=== PATIENT | female | born 1965 | race Caucasian/White ===

== ENCOUNTER 2016-11-01 14:27 | Emergency (ER) | payer OTHER ==
--- NOTE | 2016-11-01 16:34 | ED ORDER SUMMARY ---
..... Patient: CORBIN ORTEGA OrderSheet [facility] VisitID: [id number] [address] [place] [address] 51y, F Registration Date/Time: 11/01/2016 ORDER SHEET Weight: 69.8 kg (stated) Allergies: Erythromycin, Ultram GENERAL ORDERS: MEDICATION ORDERS: Prednisone PO 60 mg (NOW) (15:38 11/01/2016 Roz MONTESINOS) (Ack 15:41 SRoberts R.N.) (15:51 SRoberts R.N.) Benadryl PO 50 mg (NOW) (15:38 11/01/2016 Roz MONTESINOS) (Ack 15:41 SRoberts R.N.) (15:51 SRoberts R.N.) Famotidine PO 40 mg (NOW) (15:38 11/01/2016 Roz MONTESINOS) (Ack 15:41 SRoberts R.N.) (15:52 SRoberts R.N.) IV FLUIDS: ORDER SHEET NOTES: [Electronically signed by Debbie Johnston R.N. (21:33 11/01/2016)] [Electronically signed by Artemio Inman MD (13:25 11/02/2016)] [Electronically locked/signed by Debbie Johnston R.N. (21:33 11/01/2016)]
--- NOTE | 2016-11-01 16:34 | ED NURSING NOTES ---
Clinical Report - Nurses [facility] [address] [place] [address] 11/01/2016 14:30 Patient: CORBIN ORTEGA TRIAGE Triage time 14:34 Nov 01 2016. Chief Complaint: SKIN RASH. Alert. No acute distress. SEPSIS SCREEN: Sepsis Screen. Negative (no infection suspected/documented). --14:45 Debbie Johnston R.N. 14:34 11/01/16. BP: 145/87. HR: 80. RR: 17. O2 saturation: 99%. Temp: 98.4 F. Pain level now: 11/01. --14:45 Debbie Johnston R.N. Weight: 69.8 kg stated. Height/Length: 63 inches Per Patient. BMI: 27.3. --14:44 Debbie Johnston R.N. Medications OxyCONTIN Oral. --14:42 Debbie Johnston R.N. Hydrocodone-Acetaminophen Oral. --14:42 Debbie Johnston R.N. TiZANidine HCl Oral. --14:42 Debbie Johnston R.N. Gabapentin Oral. --14:42 Debbie Johnston R.N. Voltaren Transdermal. --14:43 Debbie Johnston R.N. Furosemide Oral. --14:43 Debbie Johnston R.N. Nasacort Allergy 24HR Nasal. --14:43 Debbie Johnston R.N. NexIUM Oral. --14:43 Debbie Johnston R.N. Paxil Oral. --14:44 Debbie Johnston R.N. Allergies Erythromycin. --14:39 Debbie Johnston R.N. Ultram. --14:39 Debbie Johnston R.N. Medication/allergy information source: the patient (does not know dosages of drugs). --14:45 Debbie Johnston R.N. History Arrived by private vehicle. Historian: patient. Reported as (pt reports rash that began sunday, pt has used "a benadryl cream" 2 days ago and cortisone 10, pt started new med 3 weeks ago estradial, pt denies new soap, laundry detergent, creams or shampoo.). This is a new problem. (sunday). It is described as itchy. It is described as painful (warm water and "sensitive to sunlight" increases pain). 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 PAST MEDICAL HX: Immunizations: up-to-date. The patient has had a hysterectomy. SOCIAL HX: Heavy tobacco smoker- 1 pack per day. No alcohol use or drug use. No infectious disease exposure. ABUSE ASSESSMENT: No report of abuse. SELF HARM ASSESSMENT: A self harm assessment was performed. The patient answered "no" to the question "Have you recently felt down, depressed, or hopeless?", "Have you noticed less interest or pleasure in doing things?", "Do you have thoughts of harming or killing yourself?", "Are you here because you tried to hurt yourself?", "Have you ever tried to hurt yourself before today?", "Have you recently had thoughts about harming or killing others?" and "Do you have any dangerous items in your possession?". FALL RISK ASSESSMENT: Fall risk assessment completed. No fall risk identified. NUTRITIONAL RISK ASSESSMENT: The nutritional risk assessment revealed no deficiencies. FUNCTIONAL ASSESSMENT: Functional assessment: no impairments noted. LEARNING NEEDS ASSESSMENT: The learning needs assessment revealed no barriers. SKIN INTEGRITY ASSESSMENT: Skin integrity risk assessment completed. No skin integrity risk identified. --14:45 Debbie Johnston R.N. PROBLEMS: UTI - Urinary Tract Infection. Hypertension. Drug Poisoning. Bursitis. Arthritis. Endometriosis. Osteopenia. Depression. --14:41 Debbie Johnston R.N. ADDITIONAL SURGERIES: 20 surgeries for endometriosis . Appendectomy. Bladder Suspension. Cholecystectomy. Hysterectomy. Oophorectomy. Right great toe surgery . --14:41 Debbie Johnston R.N. Interventions ID and allergy band on patient. --14:45 Debbie Johnston R.N. PHYSICAL ASSESSMENT Ambulatory to room. Patient gowned. GENERAL / NEURO / PSYCH: Alert. The patient does not appear to be in acute distress. Oriented X 4. HEENT: Pupils equal, round and reactive to light. Mucous membranes are pink. RESPIRATORY: Respirations not labored. Breath sounds within normal limits. ( speaks long full clear sentences, clears oral secretions, L/S clear to posterior auscultation). CVS: Capillary refill less than 2 seconds. Pulses within normal limits. GI / : Abdomen nontender. SKIN: Skin is warm, dry and non-tender. Skin rash present- various areas to lower abd, feet, low back and chest. Normal skin turgor. --14:47 Debbie Johnston R.N. NURSING PROGRESS NOTES Patient gowned. Head of bed elevated. Reassurance given. Patient identifiers checked. Call light placed in reach. Side rails up x 1. Bed placed in lowest position. Brakes of bed on. Patient ready for evaluation- chart flagged. Patient waiting for evaluation. --14:47 Debbie Johnston R.N. 15:51 11/01/2016 Prednisone PO 60 mg given. Allergies verified and confirmed 5 rights. --15:51 Deena Larson R.N. 15:51 11/01/2016 Benadryl (DiphenhydrAMINE HCl) PO 50 mg given. Allergies verified, confirmed 5 rights and sedative warning given to the patient. --15:51 Deena Larson R.N. 15:52 11/01/2016 Famotidine PO 40 mg given. Allergies verified and confirmed 5 rights. --15:52 Deena Larson R.N. Reassessment after medication administered (improvement). She has had no adverse reaction. Overall patient status is improved. ( pt reports a decrease in symptoms since meds.). --16:10 Debbie Johnston R.N. ( pt encouraged to not scratch). --16:10 Debbie Johnston R.N. ( waiting paperwork for dispo). --16:37 Debbie Johnston R.N. DISPOSITION / DISCHARGE Condition at departure: improved. No learning barriers present. Discharge instructions provided and reviewed with the patient. Reviewed medication(s) information. Prescription(s) given to the patient. Note given. Patient verbalized understanding. Written instructions provided in Indonesian. The patient was discharged by the physician. She was discharged home. She left the Emergency Department ambulatory and via private vehicle. Patient driving. --16:52 Debbie Johnston R.N. 16:51 11/01/16. BP: 133/79. HR: 74. RR: 15. O2 saturation: 99%. Temp: 98.6 F. Pain level now: 08/04. --16:52 Debbie Johnston R.N. Departure time: 1644. --16:52 Debbie Johnston R.N. Locked/Released at 11/01/2016 21:33 by Debbie Johnston R.N.
--- NOTE | 2016-11-01 16:34 | ED ORDER SUMMARY ---
..... Patient: CORBNI ORTEGA OrderSheet [facility] VisitID: [id number] [address] [place] [address] 51y, F Registration Date/Time: 11/01/2016 ORDER SHEET Weight: 69.8 kg (stated) Allergies: Erythromycin, Ultram GENERAL ORDERS: MEDICATION ORDERS: Prednisone PO 60 mg (NOW) (15:38 11/01/2016 Roz MONTESINOS) (Ack 15:41 SRoberts R.N.) (15:51 SRoberts R.N.) Benadryl PO 50 mg (NOW) (15:38 11/01/2016 Roz MONTESINOS) (Ack 15:41 SRoberts R.N.) (15:51 SRoberts R.N.) Famotidine PO 40 mg (NOW) (15:38 11/01/2016 Roz MONTESINOS) (Ack 15:41 SRoberts R.N.) (15:52 SRoberts R.N.) IV FLUIDS: ORDER SHEET NOTES: [Electronically signed by Debbie Johnston R.N. (21:33 11/01/2016)] [Electronically signed by Artemio Inman MD (13:25 11/02/2016)] [Electronically locked/signed by Debbie Johnston R.N. (21:33 11/01/2016)]
--- NOTE | 2016-11-01 16:34 | ED CLINICAL REPORT ---
Clinical Report - Physicians/Mid Levels [facility] [address] [place] [address] 11/01/2016 14:30 Patient: CORBIN ORTEGA Time Seen: 14:42. Historian- patient. CPT: ER phys charges level 3 (#[id number]). HISTORY OF PRESENT ILLNESS Chief Complaint: SKIN RASH. 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 This is a new problem. (sunday). It is described as itchy. It is described as painful (warm water and "sensitive to sunlight" increases pain). and is still present (worse). It is described as itchy. It has been generalized in location. A possible cause has been identified (Shaved in groin and axilla and this is where the rash started.). Similar symptoms previously: None. Recent medical care: Not recently seen/assessed. REVIEW OF SYSTEMS No fever, chills, sore throat, cough or difficulty breathing. No lump in throat, enlarged lymph nodes, eye irritation, chest pain or abdominal pain. No nausea, diarrhea or vomiting. All systems otherwise negative, except as recorded above. PAST HISTORY UTI - Urinary Tract Infection. Hypertension. Drug Poisoning. Bursitis. Arthritis. Endometriosis. Osteopenia. Depression. ADDITIONAL SURGERIES: 20 surgeries for endometriosis . Appendectomy. Bladder Suspension. Cholecystectomy. Hysterectomy. Oophorectomy. Right great toe surgery. Medications: Paxil Oral. NexIUM Oral. Nasacort Allergy 24HR Nasal. Furosemide Oral. Voltaren Transdermal. Gabapentin Oral. TiZANidine HCl Oral. Hydrocodone-Acetaminophen Oral. OxyCONTIN Oral. Allergies: Erythromycin. Ultram. SOCIAL HISTORY Heavy tobacco smoker (cigarette)- 1 pack per day. No alcohol use or drug use. ADDITIONAL NOTES The nursing notes have been reviewed. PHYSICAL EXAM Vital Signs: 11/01/2016 14:34 BP: 145/87. HR: 80. RR: 17. O2 saturation: 99%. Temp: 98.4 F. Pain level now: 5/10. Appearance: Alert. Anxious. Patient in mild distress. Eyes: Pupils equal, round and reactive to light. Conjunctivae and eyelids normal. ENT: Ears normal. Nose normal. Pharynx normal. Neck: Neck supple. CVS: Normal heart rate and rhythm. Heart sounds normal. Respiratory: No respiratory distress. Breath sounds normal. Chest nontender. No wheezes. Abdomen: Nontender. Skin: No tender indurated area. No cellulitis. Rash present on the right and left abdomen and posterior neck. Rash present on the right wrist and hand and left wrist and hand. Rash present on the right lower extremity and left lower extremity. The rash is urticarial. No tenderness. Extremities: Normal external inspection. Extremities nontender. Neuro: Oriented X 3. No motor deficit. No sensory deficit. PROGRESS AND PROCEDURES Course of Care: Allergy considered. Pt also has distribution of skabies as axilla, groin and fingers itch. She did shave in the groin and axilla before the rash started. Discussed treating for allergies and if not resolved in 48 hours consider treating for scabies. Patient/family counseled. Disposition: Discharged. Condition: stable and improved. CLINICAL IMPRESSION Acute hives secondary to allergy. INSTRUCTIONS No strenuous activity. Warnings: Further evaluation is necessary. SEDATIVE MEDICATION: You were given sedative medication during your visit. Do not drive or operate dangerous machinery. GENERAL WARNINGS: Return or contact your physician immediately if your condition worsens or changes unexpectedly, if not improving as expected, or if other problems arise. Your Current Medications: CONTINUE TAKING THE FOLLOWING MEDICATIONS: Furosemide Oral. Gabapentin Oral. Hydrocodone-Acetaminophen Oral. Nasacort Allergy 24HR Nasal. NexIUM Oral. OxyCONTIN Oral. Paxil Oral. TiZANidine HCl Oral. Voltaren Transdermal. Prescription Medications: Prednisone 60 mg a day for 3 days. OTC Medications: Benadryl Allergy 25 mg (available over the counter): take 1-2 orally every 6 hours for 3 days, as needed for itching or allergies. Dispense twenty (20). No refill. Follow-up: Follow up with your doctor in three days if not better. Understanding of the discharge instructions verbalized by patient. (Electronically signed by Artemio Inman MD 11/02/2016 13:25)
--- NOTE | 2016-11-01 16:34 | ED CLINICAL REPORT ---
Clinical Report - Physicians/Mid Levels [facility] [address] [place] [address] 11/01/2016 14:30 Patient: CORBIN ORTEGA Time Seen: 14:42. Historian- patient. CPT: ER phys charges level 3 (#[id number]). HISTORY OF PRESENT ILLNESS Chief Complaint: SKIN RASH. 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 This is a new problem. (sunday). It is described as itchy. It is described as painful (warm water and "sensitive to sunlight" increases pain). and is still present (worse). It is described as itchy. It has been generalized in location. A possible cause has been identified (Shaved in groin and axilla and this is where the rash started.). Similar symptoms previously: None. Recent medical care: Not recently seen/assessed. REVIEW OF SYSTEMS No fever, chills, sore throat, cough or difficulty breathing. No lump in throat, enlarged lymph nodes, eye irritation, chest pain or abdominal pain. No nausea, diarrhea or vomiting. All systems otherwise negative, except as recorded above. PAST HISTORY UTI - Urinary Tract Infection. Hypertension. Drug Poisoning. Bursitis. Arthritis. Endometriosis. Osteopenia. Depression. ADDITIONAL SURGERIES: 20 surgeries for endometriosis . Appendectomy. Bladder Suspension. Cholecystectomy. Hysterectomy. Oophorectomy. Right great toe surgery. Medications: Paxil Oral. NexIUM Oral. Nasacort Allergy 24HR Nasal. Furosemide Oral. Voltaren Transdermal. Gabapentin Oral. TiZANidine HCl Oral. Hydrocodone-Acetaminophen Oral. OxyCONTIN Oral. Allergies: Erythromycin. Ultram. SOCIAL HISTORY Heavy tobacco smoker (cigarette)- 1 pack per day. No alcohol use or drug use. ADDITIONAL NOTES The nursing notes have been reviewed. PHYSICAL EXAM Vital Signs: 11/01/2016 14:34 BP: 145/87. HR: 80. RR: 17. O2 saturation: 99%. Temp: 98.4 F. Pain level now: 5/10. Appearance: Alert. Anxious. Patient in mild distress. Eyes: Pupils equal, round and reactive to light. Conjunctivae and eyelids normal. ENT: Ears normal. Nose normal. Pharynx normal. Neck: Neck supple. CVS: Normal heart rate and rhythm. Heart sounds normal. Respiratory: No respiratory distress. Breath sounds normal. Chest nontender. No wheezes. Abdomen: Nontender. Skin: No tender indurated area. No cellulitis. Rash present on the right and left abdomen and posterior neck. Rash present on the right wrist and hand and left wrist and hand. Rash present on the right lower extremity and left lower extremity. The rash is urticarial. No tenderness. Extremities: Normal external inspection. Extremities nontender. Neuro: Oriented X 3. No motor deficit. No sensory deficit. PROGRESS AND PROCEDURES Course of Care: Allergy considered. Pt also has distribution of skabies as axilla, groin and fingers itch. She did shave in the groin and axilla before the rash started. Discussed treating for allergies and if not resolved in 48 hours consider treating for scabies. Patient/family counseled. Disposition: Discharged. Condition: stable and improved. CLINICAL IMPRESSION Acute hives secondary to allergy. INSTRUCTIONS No strenuous activity. Warnings: Further evaluation is necessary. SEDATIVE MEDICATION: You were given sedative medication during your visit. Do not drive or operate dangerous machinery. GENERAL WARNINGS: Return or contact your physician immediately if your condition worsens or changes unexpectedly, if not improving as expected, or if other problems arise. Your Current Medications: CONTINUE TAKING THE FOLLOWING MEDICATIONS: Furosemide Oral. Gabapentin Oral. Hydrocodone-Acetaminophen Oral. Nasacort Allergy 24HR Nasal. NexIUM Oral. OxyCONTIN Oral. Paxil Oral. TiZANidine HCl Oral. Voltaren Transdermal. Prescription Medications: Prednisone 60 mg a day for 3 days. OTC Medications: Benadryl Allergy 25 mg (available over the counter): take 1-2 orally every 6 hours for 3 days, as needed for itching or allergies. Dispense twenty (20). No refill. Follow-up: Follow up with your doctor in three days if not better. Understanding of the discharge instructions verbalized by patient. (Electronically signed by Artemio Inman MD 11/02/2016 13:25)
--- NOTE | 2016-11-02 13:26 | ED MED RECONCILIATION SUMMARY ---
Patient: CORBIN ORTEGA Medication Reconciliation Report [facility] VisitID: [id number] [address] [place] [address] 51y, F Registration Date/Time: 11/01/2016 Weight: 69.8 kg Height/Length: 63 in. BMI: 27.3 ALLERGIES: Erythromycin, Ultram The patient's Home Medications are listed below: CONTINUE TAKING THE FOLLOWING MEDICATIONS: Furosemide Oral Gabapentin Oral Hydrocodone-Acetaminophen Oral Nasacort Allergy 24HR Nasal NexIUM Oral OxyCONTIN Oral Paxil Oral TiZANidine HCl Oral Voltaren Transdermal The source(s) of the original Home Medication information: patient does not know dosages of drugs The following Medications were given to the patient in the Emergency Department: Prednisone [PO] PO 60 mg, administered: 11/01/2016 3:51:00 PM Benadryl [PO] PO 50 mg, administered: 11/01/2016 3:51:00 PM Famotidine [PO] PO 40 mg, administered: 11/01/2016 3:52:00 PM The following Medications were prescribed to the patient: Prednisone 60 mg a day for 3 days. -- Artemio Inman MD Benadryl Allergy 25 mg (available over the counter): take 1-2 orally every 6 hours for 3 days, as needed for itching or allergies. Dispense twenty (20). No refill. -- Artemio Inman MD
--- NOTE | 2016-11-02 13:26 | ED MAR SUMMARY ---
..... Medication Administration Record [facility] [address] [place] [address] Patient: CORBIN ORTEGA Visit ID: [id number] 51y, F Weight: 69.8 kg Height/Length: 63 in BMI: 27.3 ALLERGIES: Ultram, Erythromycin Given 15:51 11/01/2016 Deena Larson R.N. Medication Administered: PREDNISONE [PO], Dose: 60 mg PO. Medication Ordered: Prednisone PO 60 mg (NOW). Given 15:51 11/01/2016 Deena Larson R.N. Medication Administered: BENADRYL [PO] (DIPHENHYDRAMINE HCL), Dose: 50 mg PO. Medication Ordered: Benadryl PO 50 mg (NOW). Given 15:52 11/01/2016 Deena Larson R.N. Medication Administered: FAMOTIDINE [PO], Dose: 40 mg PO. Medication Ordered: Famotidine PO 40 mg (NOW).
--- NOTE | 2016-11-02 13:26 | ED MED RECONCILIATION SUMMARY ---
Patient: CORBIN ORTEGA Medication Reconciliation Report [facility] VisitID: [id number] [address] [place] [address] 51y, F Registration Date/Time: 11/01/2016 Weight: 69.8 kg Height/Length: 63 in. BMI: 27.3 ALLERGIES: Erythromycin, Ultram The patient's Home Medications are listed below: CONTINUE TAKING THE FOLLOWING MEDICATIONS: Furosemide Oral Gabapentin Oral Hydrocodone-Acetaminophen Oral Nasacort Allergy 24HR Nasal NexIUM Oral OxyCONTIN Oral Paxil Oral TiZANidine HCl Oral Voltaren Transdermal The source(s) of the original Home Medication information: patient does not know dosages of drugs The following Medications were given to the patient in the Emergency Department: Prednisone [PO] PO 60 mg, administered: 11/01/2016 3:51:00 PM Benadryl [PO] PO 50 mg, administered: 11/01/2016 3:51:00 PM Famotidine [PO] PO 40 mg, administered: 11/01/2016 3:52:00 PM The following Medications were prescribed to the patient: Prednisone 60 mg a day for 3 days. -- Artemio Inman MD Benadryl Allergy 25 mg (available over the counter): take 1-2 orally every 6 hours for 3 days, as needed for itching or allergies. Dispense twenty (20). No refill. -- Artemio Inman MD
--- NOTE | 2016-11-02 13:26 | ED DISCHARGE INSTRUCTIONS ---
Patient: CORBIN ORTEGA General Instructions [facility] VisitID: [id number] [place] [address] 51y, F Registration Date/Time: 11/01/2016 Acute hives secondary to allergy. INSTRUCTIONS No strenuous activity. Warnings: Further evaluation is necessary. SEDATIVE MEDICATION: You were given sedative medication during your visit. Do not drive or operate dangerous machinery. GENERAL WARNINGS: Return or contact your physician immediately if your condition worsens or changes unexpectedly, if not improving as expected, or if other problems arise. Your Current Medications: CONTINUE TAKING THE FOLLOWING MEDICATIONS: Furosemide Oral. Gabapentin Oral. Hydrocodone-Acetaminophen Oral. Nasacort Allergy 24HR Nasal. NexIUM Oral. OxyCONTIN Oral. Paxil Oral. TiZANidine HCl Oral. Voltaren Transdermal. Prescription Medications: Prednisone 60 mg a day for 3 days. OTC Medications: Benadryl Allergy 25 mg (available over the counter): take 1-2 orally every 6 hours for 3 days, as needed for itching or allergies. Dispense twenty (20). No refill. Follow-up: Follow up with your doctor in three days if not better. Understanding of the discharge instructions verbalized by patient. ADDITIONAL INFORMATION Hives Hives is an itchy red rash that can appear suddenly and move about your body. It goes away in one place and comes back in another. This is usually caused by something that you are allergic to such as: EATING: fruit, shellfish, chocolate, nuts, tomatoes or medicine BREATHING: pollens, animal hair/fur or mold spores Exposure to cold air, sun rays or exercise can sometimes cause an attack. Many times we cannot find a cause. Medicines can be used to reduce itching and swelling. The rash will usually fade over several days, but can sometimes last up to two weeks. Home Care: 1) Do not wear tight clothing and do not take hot baths/showers since heat can make the itching worse. 2) An ice pack (ice cubes in a plastic bag, wrapped in a towel) will reduce local areas of redness and itching. Lanacaine cream or Solarcaine spray (or other product containing "benzocaine") will reduce itching. 3) Oral Benadryl (diphenhydramine) is an antihistamine available at drug and grocery stores. Unless a prescription antihistamine was given, Benadryl may be used to reduce itching if large areas of the skin are involved. Use lower doses during the daytime and higher doses at bedtime since the drug may make you sleepy. [NOTE: Do not use Benadryl if you have glaucoma or if you are a man with trouble urinating due to an enlarged prostate.] Claritin (loratadine) is an antihistamine that causes less drowsiness and is a good alternative for daytime use. 4) If you know what you are sensitive to, avoid this substance. Future reactions could be worse than this one. Follow Up with your doctor as directed by our staff, if symptoms do not begin to improve in two days. If you have had a severe reaction, or have had several episodes of hives, then ask your doctor about allergy testing to find out what you are allergic to. Get Prompt Medical Attention if any of the following occur: -- Trouble breathing or swallowing -- New or increased swelling in the face, lips, tongue or throat -- Dizziness, weakness or fainting Allergic Reaction,Generalized [Other] You are having an allergic reaction. This may cause an itchy rash, dizziness, fainting, trouble breathing or swallowing, and swelling of the face or other parts of the body. This can be caused by exposure to something in your surroundings that you have become sensitive to. This could be due to medicine or food. This could also be due to something you put on your skin or in your hair or something in the air. Often it is not possible to find out exactly what has caused your reaction. The goal of today's treatment is to relieve symptoms. The rash will usually fade over several days, but can sometimes last up to two weeks. Home Care: 1) If you know what you are allergic to, avoid it because future reactions could be worse than this one. 2) Avoid tight clothing and anything that heats up your skin (hot showers/baths, direct sunlight) since heat will make itching worse. 3) An ice pack will relieve local areas of intense itching and redness. Lanacaine cream or Solarcaine spray (or other product containing "benzocaine", available without a prescription) will reduce the itching. 4) Oral Benadryl (diphenhydramine) is an antihistamine available at drug and grocery stores. Unless a prescription antihistamine was given, Benadryl may be used to reduce itching if large areas of the skin are involved. Use lower doses during the daytime and higher doses at bedtime since the drug may make you sleepy. [NOTE: Do not use Benadryl if you have glaucoma or if you are a man with trouble urinating due to an enlarged prostate.] Claritin (loratidine) is an antihistamine that causes less drowsiness and is a good alternative for daytime use. Follow Up Follow Up with your doctor or this facility in two days if your symptoms do not continue to improve. If you had a severe reaction today, or if you have had several mild-moderate allergic reactions in the past, ask your doctor about allergy testing to find out what you are allergic to. If your reaction included dizziness, fainting or trouble breathing or swallowing, ask your doctor about carrying an Allergy Kit (injectable epinephrine) for home use. Get Prompt Medical Attention if any of the following occur: -- Trouble breathing or swallowing -- New or worse swelling in the face, eyelids, lips, mouth, tongue or throat -- Dizziness, weakness or fainting Diphenhydramine Tannate Chewable tablet What is this medicine? DIPHENHYDRAMINE (dye neli chirinos) is an antihistamine. It is used to treat the symptoms of an allergic reaction. How should I use this medicine? Take this medicine by mouth. Chew it completely before swallowing. Follow the directions on the prescription label. Take your doses at regular intervals. Do not take your medicine more often than directed. Talk to your external grinder regarding the use of this medicine in children. While this drug may be prescribed for children as young as 6 years old for selected conditions, precautions do apply. Patients over 65 years old may have a stronger reaction and need a smaller dose. What side effects may I notice from receiving this medicine? Side effects that you should report to your doctor or health clinical manager home care as soon as possible: allergic reactions like skin rash, itching or hives, swelling of the face, lips, or tongue changes in vision confused, agitated, nervous irregular or fast heartbeat tremor trouble passing urine unusual bleeding or bruising unusually weak or tired Side effects that usually do not require medical attention (report to your doctor or health clinical manager home care if they continue or are bothersome): constipation, diarrhea drowsy headache loss of appetite stomach upset, vomiting thick mucous What may interact with this medicine? Do not take this medicine with any of the following medications: MAOIs like Carbex, Eldepryl, Marplan, Nardil, and Parnate This medicine may also interact with the following medications: alcohol barbiturates, like phenobarbital medicines for bladder spasm like oxybutynin, tolterodine medicines for blood pressure medicines for depression, anxiety, or psychotic disturbances medicines for movement abnormalities or Parkinson's disease medicines for sleep other medicines for cold, cough or allergy some medicines for the stomach like chlordiazepoxide, dicyclomine What if I miss a dose? If you miss a dose, take it as soon as you can. If it is almost time for your next dose, take only that dose. Do not take double or extra doses. Where should I keep my medicine? Keep out of the reach of children. Store at room temperature between 15 and 30 degrees C (59 and 86 degrees F). Keep container closed tightly. Throw away any unused medicine after the expiration date. What should I tell my health care provider before I take this medicine? They need to know if you have any of these conditions: glaucoma high blood pressure heart disease liver disease lung or breathing disease, like asthma pain or difficulty passing urine phenylketonuria prostate trouble ulcers or other stomach problems an unusual or allergic reaction to diphenhydramine, sulfites, other medicines foods, dyes, or preservatives or trying to get breast-feeding What should I watch for while using this medicine? Visit your doctor or health clinical manager home care for regular check ups. Tell your doctor or healthcare professional if your symptoms do not start to get better or if they get worse. Your mouth may get dry. Chewing sugarless gum or sucking hard candy, and drinking plenty of water may help. Contact your doctor if the problem does not go away or is severe. This medicine may cause dry eyes and blurred vision. If you wear contact lenses you may feel some discomfort. Lubricating drops may help. See your eye doctor if the problem does not go away or is severe. You may get drowsy or dizzy. Do not drive, use machinery, or do anything that needs mental alertness until you know how this medicine affects you. Do not stand or sit up quickly, especially if you are an older patient. This reduces the risk of dizzy or fainting spells. Alcohol may interfere with the effect of this medicine. Avoid alcoholic drinks. You have been given the following additional information: Hives Allergic Reaction, Other (General) Diphenhydramine Tannate Chewable tablet No strenuous activity. (Electronically signed by Artemio Inman MD 11/02/2016 13:25)
--- NOTE | 2016-11-02 13:26 | ED MAR SUMMARY ---
..... Medication Administration Record [facility] [address] [place] [address] Patient: CORBIN ORTEGA Visit ID: [id number] 51y, F Weight: 69.8 kg Height/Length: 63 in BMI: 27.3 ALLERGIES: Ultram, Erythromycin Given 15:51 11/01/2016 Deena Larson R.N. Medication Administered: PREDNISONE [PO], Dose: 60 mg PO. Medication Ordered: Prednisone PO 60 mg (NOW). Given 15:51 11/01/2016 Deena Larson R.N. Medication Administered: BENADRYL [PO] (DIPHENHYDRAMINE HCL), Dose: 50 mg PO. Medication Ordered: Benadryl PO 50 mg (NOW). Given 15:52 11/01/2016 Deena Larson R.N. Medication Administered: FAMOTIDINE [PO], Dose: 40 mg PO. Medication Ordered: Famotidine PO 40 mg (NOW).
== END 2016-11-01 16:44 | disposition home or self-care (01) ==
LOC: ED SRH 14:27
DX: L50.0 Allergic urticaria (principal); I10 Essential (primary) hypertension; Z79.899 Other long term (current) drug therapy; Z88.1 Allergy status to other antibiotic agents; Z88.5 Allergy status to narcotic agent; F17.210 Nicotine dependence, cigarettes, uncomplicated